=== PATIENT | male | born 1960 | race Caucasian/White ===

== ENCOUNTER → 2020-05-29 | Outpatient (CLI) | payer BC ==
--- NOTE | 2020-05-29 18:40 | KCIC ---
AP pelvis radiograph to include a lateral radiograph of the left hip 05/29/2020 CLINICAL HISTORY: Left hip pain. An AP digital radiograph of pelvis to include both hips was obtained. A lateral digital radiographs l eft hip was obtained. No pelvic bone fractures seen. Both hips are intact. Specifically no fracture o r dislocation of the left hip is seen. Mild degenerative changes are seen involving both hips. Calcif ications are seen within the pelvis consistent with phleboliths. IMPRESSION: Mild degenerative changes are seen involving both hips. No acute osseous abnormality is s een. Electronically signed by: Geraldo Moreno MD (05/29/2020 6:38 PM) [id number]
--- NOTE | 2020-05-29 18:42 | KCIC ---
Three-view lumbar spine radiographs 05/29/2020 CLINICAL HISTORY: Acute low back pain. AP and two lateral standing digital radiographs of the lumbar spine were obtained. Very mild S-shaped curvature of the thoracolumbar spine is seen. No fracture or subluxation of the lumbar vertebrae is noted. Degenerative changes are seen throughout the lumbar disc spaces consisting of varying degrees of disc space narrowing, vertebral endplate sclerosis and minimal to mild anterior and posterior vert ebral body osteophyte formation. Degenerative changes are seen involving the facet joints throughout the lumbar disc spaces. Mild atherosclerotic calcification of the abdominal aorta and its branches is noted. IMPRESSION: Degenerative changes are seen involving the lumbar spine as discussed above. No acute oss eous abnormality is seen. Electronically signed by: Geraldo Moreno MD (05/29/2020 6:40 PM) [id number]
== END ==
LOC: KCIC 12:39
PROVIDERS: ATTEND Nurse Practitioner Gerontology
DX: M16.0 Bilateral primary osteoarthritis of hip (principal); M47.816 Spondylosis without myelopathy or radiculopathy, lumbar region; M54.42 Lumbago with sciatica, left side; M25.559 Pain in unspecified hip; I70.0 Atherosclerosis of aorta; M25.78 Osteophyte, vertebrae
CPT/HCPCS: 72100; 73501